=== PATIENT | female | born 1965 | race Caucasian/White ===

== ENCOUNTER 2016-11-25 13:26 | Inpatient (IN) | payer OTHER ==
--- NOTE | ~2016-11-25 | DS ---
Discharge Summary [address] [place]. [address] NAME: AZALIA HOSKINS : 69 STATUS : DIS IN PAT#: [id number] AGE: 51 ADM/REG DATE : 11/25/16 MR#: [id number] REPORT SERV DATE: 11/30/16 DICTATED BY: PENNIE THRASHER DATE: 11/28/16 REPORT STATUS : Draft TRANSCRIBED BY: MODL DATE: 11/28/16 ADMISSION DATE: 11/25/2016 DISCHARGE DATE: 11/28/2016 DISCHARGE DIAGNOSES: 1. Acute gastrointestinal bleeding. 2. Upper gastrointestinal endoscopy. Findings:. a. LA grade D reflux esophagitis. b. Nonbleeding esophageal ulcers. c. Hiatal hernia. d. Gastric ulcer with clean base. e. Scar in gastric antrum. f. Normal examined duodenum. 3. Acute blood loss anemia secondary to above. 4. Abdominal pain secondary to above. 5. Iron deficiency. 6. Chronic hepatitis C, not treated. 7. Chronic pain disorder. 8. Depression. 9. Hypertension. 10.Previous LEEP procedure per precervical cancer changes. 11.Previous back surgery. 12.Chronic dermatitis. 13.History of possible seizure. 14.Diverticulosis without diverticulitis by CT imaging obtained in the emergency room. 15.Fatty liver on ultrasound imaging obtained in the emergency room. OPERATIONS AND PROCEDURES: Upper gastrointestinal endoscopy, Dr. You, 11/26/2016. PRESENT ILLNESS: This is a 51-year-old white female who was triaged in the emergency room on 11/25/2016 at 1216 hours with a chief complaint of vomiting blood. Admission vital signs: Blood pressure 133/75, temp 98.8, pulse 121, and respirations 20. After evaluation in the emergency room, she was found to have a hemoglobin of 7.9. She was referred to the Hospitalist Service for admission. She was seen by Dr. Kirk Espinosa and admitted as described on admission history and physical examination. Additional history included a hospitalization here in 08/2015 with nausea and vomiting at which time upper GI endoscopy revealed a gastric ulcer with clean base, hiatal hernia, and grade D esophagitis. Biopsy at that time revealed mild chronic gastritis changes. Since that time, the patient reported intermittent epigastric abdominal pain. Of late, she had more pain. She developed some nausea and vomiting with bloody and dark emesis. She has been using NSAIDs. ADDITIONAL HISTORY: Per Dr. Espinosa. Discharge Summary [address] [address] NAME: AZALIA HOSKINS : [birth year] STATUS : DIS IN PAT#: [id number] AGE: 51 ADM/REG DATE : 11/25/16 MR#: [id number] REPORT SERV DATE: 11/30/16 DICTATED BY: PENNIE THRASHER DATE: 11/28/16 REPORT STATUS : Draft TRANSCRIBED BY: MESHA DATE: 11/28/16 PHYSICAL EXAMINATION: Per Dr. Espinosa. ADMISSION LABORATORY: Per Dr. Espinosa. HOSPITAL COURSE: She was admitted by Dr. Espinosa with: 1. Epigastric pain. 2. Anemia. 3. Untreated hepatitis C. 4. Chronic back pain. 5. History of major depression with insomnia. 6. History of fatty liver. 7. History of eczema. 8. History of hypertension. 9. Questionable history of seizure. She was admitted to [address] [place] [address]. She was placed on IV Protonix. GI consultation was obtained. Her hospitalist care was assumed by the undersigned. She was taken to the GI lab on 11/26/2016 with the above-mentioned procedure was performed with findings as noted. Dr. You recommended clear liquid diet, anti-reflux regimen, discontinuation of aspirin and NSAIDs indefinitely, discontinuation of alcohol consumption indefinitely, use of omeprazole twice daily for three months, and follow up with him in three weeks. With this therapy, she continued to have some epigastric pain. Carafate suspension was added. Her pain improved. Her hemoglobin was 7.9 on admission. It fell to a low of 6.8. She was given a unit of packed red cells and subsequent hemoglobins were 8.3, 8.6, 8.4, 8.3, and 8.9. She was found to be iron deficient with an iron of 60, TIBC 358, and a ferritin of 14. She was given IV Nulecit x3 doses, all of which she tolerated well. An HIV antibody was done because of her hep C history and was nonreactive. She tolerated liquids well and her diet was advanced, which she also tolerated well. On 11/28/2016, she thought she was almost back to normal. She was ambulatory. She has had a normal bowel movement with normal color. There were no new findings on exam and her lab was as noted. At this point, it was felt she had achieved a level of improvement and stability where she could be safely discharged home and see her primary care physician, Dr. Cunnnigham in [place] on 12/10/[address] You in three weeks. Her activity and diet will be as tolerated. She was asked not to use NSAIDs and alcohol as Discharge Summary [address] [address] NAME: AZALIA HOSKINS : 69 STATUS : DIS IN PAT#: [id number] AGE: 51 ADM/REG DATE : 11/25/16 MR#: [id number] REPORT SERV DATE: 11/30/16 DICTATED BY: PENNIE THRASHER DATE: 11/28/16 REPORT STATUS : Draft TRANSCRIBED BY: MESHA DATE: 11/28/16 noted above. DISCHARGE MEDICATIONS: Pending outpatient followup: Lyrica 75 mg at bedtime, Zoloft 100 mg daily, Carafate 1 tablet to make a slurry one hour a.c. and at bedtime, triamcinolone cream 0.1% topically to chronic eczema, Percocet 10/325 four times daily as needed, Xanax 0.5 mg twice daily as needed, Norvasc 10 mg daily, Ambien 5 mg at bedtime, Rolaids as needed, Pepto Bismol as needed, and OTC Slow FE or equivalent daily. Discharge time is greater than 30 minutes. DICTATED BY: Pennie Thrasher M.D. DD/MESHA Pennie Thrasher M.D. / [id number] CC: Татьяна Zhang M.D.
--- NOTE | ~2016-11-25 | EGD ---
EGD REPORT [facility] [address] [place] [address] NAME: AZALIA RONDON : 69 STATUS : ADM IN PAT#: [id number] AGE: 51 ADM/REG DATE : 11/25/16 MR#: [id number] REPORT SERV DATE: 11/26/16 DICTATED BY: ARAMIS ALEXANDER DATE: 11/26/16 REPORT STATUS : Draft TRANSCRIBED BY: [employer] DATE: 11/26/16 Endoscopy Center Patient Name: Azalia Rondon Date of : 1965 Attending MD: ARAMIS ALEXANDER MD Procedure Date No Time: 11/26/2016 Procedure: Upper GI endoscopy Indications: Anemia, Hematemesis Medicines: Monitored Anesthesia Care Complications: No immediate complications. Procedure: After obtaining informed consent, the endoscope was passed under direct vision. Throughout the procedure, the patient's blood pressure, pulse, and oxygen saturations were monitored continuously. The GIF H190 [id number] was introduced through the mouth, and advanced to the third part of duodenum. The upper GI endoscopy was accomplished without difficulty. The patient tolerated the procedure well. Findings: The nasopharynx was normal. LA Grade D (one or more mucosal breaks involving at least 75% of esophageal circumference) esophagitis with bleeding was found in the lower third of the esophagus. Biopsies were taken with a cold forceps for histology. Verification of patient identification for the specimen was done. Estimated blood loss was minimal. LA Grade D (one or more mucosal breaks involving at least 75% of esophageal circumference) esophagitis with no bleeding was found in the middle third of the esophagus. Few cratered and superficial esophageal ulcers with no bleeding and stigmata of recent bleeding were found in the lower third of the esophagus. The largest lesion was 20 mm in largest dimension. A medium-sized hiatus hernia was present. One non-bleeding cratered gastric ulcer with no stigmata of bleeding was found in the gastric antrum. The lesion was 9 mm in largest dimension. Multiple scars were found in the gastric antrum. The examined duodenum was normal. Impression: - Normal nasopharynx. - LA Grade D reflux esophagitis. Biopsied. - LA Grade D reflux esophagitis. - Non-bleeding esophageal ulcers. - Hiatus hernia. - Gastric ulcer with clean base. - Scar in the gastric antrum. EGD REPORT [address] [address] NAME: AZALIA RONDON : [birth year] STATUS : ADM IN [facility]#: [id number] AGE: 51 ADM/REG DATE : 11/25/16 MR#: [id number] REPORT SERV DATE: 11/26/16 DICTATED BY: ARAMIS ALEXANDER DATE: 11/26/16 REPORT STATUS : Draft TRANSCRIBED BY: [employer] DATE: 11/26/16 - Normal examined duodenum. Recommendation: - Clear liquid diet today. - Follow an antireflux regimen daily. - Discontinue aspirin and NSAIDs indefinitely. - Discontinue alcohol consumption indefinitely. - Use Prilosec (omeprazole) 20 mg PO BID for 3 months. - Return to my office in 3 weeks. Procedure Code(s): --- Professional --- 64642, Esophagogastroduodenoscopy, flexible, transoral; with biopsy, single or multiple Diagnosis Code(s): --- Professional --- K21.0, Gastro-esophageal reflux disease with esophagitis K22.10, Ulcer of esophagus without bleeding K44.9, Diaphragmatic hernia without obstruction or gangrene K25.9, Gastric ulcer, unspecified as acute or chronic, without hemorrhage or perforation K31.89, Other diseases of stomach and duodenum D64.9, Anemia, unspecified K92.0, Hematemesis CPT copyright 2013 [employer]. All rights reserved. The codes documented in this report are preliminary and upon vulcan crewmember review may be revised to meet current compliance requirements. ARAMIS ALEXANDER MD 11/26/2016 5:22 PM This report has been signed electronically. Number of Addenda: 0 Note Initiated On: 11/26/2016 4:57 PM Scope Withdrawal Time 0 hours 0 minutes 0 seconds [address] [place] [address]
--- NOTE | ~2016-11-25 | EGD ---
EGD REPORT [facility] [address] [place] [address] NAME: AZALIA RONDON : 69 STATUS : ADM IN PAT#: [id number] AGE: 51 ADM/REG DATE : 11/25/16 MR#: [id number] REPORT SERV DATE: 11/26/16 DICTATED BY: ARAMIS ALEXANDER DATE: 11/26/16 REPORT STATUS : Draft TRANSCRIBED BY: [employer] DATE: 11/26/16 Endoscopy Center Patient Name: Azalia Rondon Date of : 1965 Attending MD: ARAMIS ALEXANDER MD Procedure Date No Time: 11/26/2016 Procedure: Upper GI endoscopy Indications: Anemia, Hematemesis Medicines: Monitored Anesthesia Care Complications: No immediate complications. Procedure: After obtaining informed consent, the endoscope was passed under direct vision. Throughout the procedure, the patient's blood pressure, pulse, and oxygen saturations were monitored continuously. The GIF H190 [id number] was introduced through the mouth, and advanced to the third part of duodenum. The upper GI endoscopy was accomplished without difficulty. The patient tolerated the procedure well. Findings: The nasopharynx was normal. LA Grade D (one or more mucosal breaks involving at least 75% of esophageal circumference) esophagitis with bleeding was found in the lower third of the esophagus. Biopsies were taken with a cold forceps for histology. Verification of patient identification for the specimen was done. Estimated blood loss was minimal. LA Grade D (one or more mucosal breaks involving at least 75% of esophageal circumference) esophagitis with no bleeding was found in the middle third of the esophagus. Few cratered and superficial esophageal ulcers with no bleeding and stigmata of recent bleeding were found in the lower third of the esophagus. The largest lesion was 20 mm in largest dimension. A medium-sized hiatus hernia was present. One non-bleeding cratered gastric ulcer with no stigmata of bleeding was found in the gastric antrum. The lesion was 9 mm in largest dimension. Multiple scars were found in the gastric antrum. The examined duodenum was normal. Impression: - Normal nasopharynx. - LA Grade D reflux esophagitis. Biopsied. - LA Grade D reflux esophagitis. - Non-bleeding esophageal ulcers. - Hiatus hernia. - Gastric ulcer with clean base. - Scar in the gastric antrum. EGD REPORT [address] [address] NAME: AZALIA RONDON : [birth year] STATUS : ADM IN [facility]#: [id number] AGE: 51 ADM/REG DATE : 11/25/16 MR#: [id number] REPORT SERV DATE: 11/26/16 DICTATED BY: ARAMIS ALEXANDER DATE: 11/26/16 REPORT STATUS : Draft TRANSCRIBED BY: [employer] DATE: 11/26/16 - Normal examined duodenum. Recommendation: - Clear liquid diet today. - Follow an antireflux regimen daily. - Discontinue aspirin and NSAIDs indefinitely. - Discontinue alcohol consumption indefinitely. - Use Prilosec (omeprazole) 20 mg PO BID for 3 months. - Return to my office in 3 weeks. Procedure Code(s): --- Professional --- 09291, Esophagogastroduodenoscopy, flexible, transoral; with biopsy, single or multiple Diagnosis Code(s): --- Professional --- K21.0, Gastro-esophageal reflux disease with esophagitis K22.10, Ulcer of esophagus without bleeding K44.9, Diaphragmatic hernia without obstruction or gangrene K25.9, Gastric ulcer, unspecified as acute or chronic, without hemorrhage or perforation K31.89, Other diseases of stomach and duodenum D64.9, Anemia, unspecified K92.0, Hematemesis CPT copyright 2013 [employer]. All rights reserved. The codes documented in this report are preliminary and upon death surveys coder review may be revised to meet current compliance requirements. ARAMIS ALEXANDER MD 11/26/2016 5:22 PM This report has been signed electronically. Number of Addenda: 0 Note Initiated On: 11/26/2016 4:57 PM Scope Withdrawal Time 0 hours 0 minutes 0 seconds [address] [place] [address]
--- NOTE | ~2016-11-25 | HP ---
History And Physical [address] [facility] [place]. [address] NAME: AZALIA HOSKINS : [birth year] STATUS : ADM IN [facility]#: [id number] AGE: 51 ADM/REG DATE : 11/25/16 MR#: [id number] REPORT SERV DATE: 11/25/16 DICTATED BY: ALLAN HERNANDEZ DATE: 11/25/16 REPORT STATUS : Draft TRANSCRIBED BY: MODL DATE: 11/25/16 DATE OF ADMISSION: 11/25/2016 IDENTIFYING DATA: A 51-year-old white female whose PCP is Dr. Rod Cunningham; GI, Dr. Rayshawn You. CHIEF COMPLAINT: Vomiting blood. HISTORY OF PRESENT ILLNESS: This history of present illness is obtained by talking to the patient and her father at bedside as well as talking to Dr. Owen, the ER physician, and I reviewed the current ER paper chart and [employer]. The patient has been hospitalized here in the past August 2015 for nausea and vomiting. At that time, had an endoscopy by Dr. Rayshawn You on 09/02/2015 revealing gastric ulcer with a clean base, hiatal hernia, grade D esophagitis. Biopsy was done at that time and revealed mild chronic gastritis. No evidence for neoplastic changes. No viral cytopathic changes. There is no mention about H. pylori testing. She states ever since then she has had intermittent abdominal pain located in the epigastric area. It is somewhat diffuse there, it was a raw sensation that worsens with meals. It used to flare-up every four to six months, now she states it is more often, and for the last week, it has been hurting almost constant. She has associated with some nausea. She has been throwing up some material that was dark black and some that was red. She has occasional black stools, but she has been using Pepto-Bismol. She has tried Rolaids and Pepto and states they gave her temporary relief. She came to the emergency room with these symptoms and was found to have a hemoglobin of 7.9 compared to a hemoglobin of 13.1 on 09/29/2015, so we are asked to evaluate her and admit her. REVIEW OF SYSTEMS: She subjectively had fever, sweats, cough, urinary frequency, but no dysuria. She has some trace ankle edema. She states she has gained 20 pounds in the last year. She denies sore throat, nasal congestion, chest pain, shortness of breath, diarrhea, dysuria, rash. She has slight urinary hesitancy. ALLERGIES: SHE CLAIMS MORPHINE CAUSES SEIZURES. PAST MEDICAL HISTORY: She denies any history of diabetes, asthma, COPD, heart disease, stroke, biliary tract disease, thyroid disease, chronic kidney disease, kidney stones, or sleep apnea. She has had gastric ulcer and gastritis as mentioned above, along with the hiatal hernia. She has chronic back pain for which she takes pain medicines. She has a history of depression and insomnia. She also states she has had seizures in the past when she was having electrolyte imbalances, and she states last week, she was sitting in a lawn chair, woke up, and her friend said she had a seizure where she stiffened. She did not go to the hospital for any evaluation at that time. She has known hepatitis C with no treatment in History And Physical [address] [address] NAME: AZALIA HOSKINS : [birth year] STATUS : ADM IN [facility]#: [id number] AGE: 51 ADM/REG DATE : 11/25/16 MR#: [id number] REPORT SERV DATE: 11/25/16 DICTATED BY: ALLAN HERNANDEZ DATE: 11/25/16 REPORT STATUS : Draft TRANSCRIBED BY: MESHA DATE: 11/25/16 the past. She has hypertension, eczema, and fatty liver. HOME MEDICATIONS: Include Xanax 0.5 mg b.i.d. p.r.n. anxiety, Norvasc 10 mg daily, Pepto- Bismol p.r.n., Rolaids p.r.n.; Advil, she takes about three of them per day, I told her that she should not do this anymore. I discussed how she should not take any ibuprofen in any form or Aleve and explained that it could cause ulcers, bleeding, and kidney problems; Percocet 10/325 q.i.d. p.r.n. pain, Lyrica 75 mg at bedtime, Zoloft 100 mg daily, triamcinolone cream 0.1% applied to the leg rash, Ambien 5 mg at bedtime. PAST SURGICAL HISTORY: She has had a LEEP procedure for pre-cervical cancer changes. She had back surgery. SOCIAL HISTORY: She smokes a pack per day. She states she drinks four to five beers about twice a week. She states she is "fighting to get disability at this time." FAMILY HISTORY: Mother reportedly with congestive heart failure. Father with tongue cancer. DIAGNOSTIC DATA: Available at this time includes abdominal ultrasound which shows fatty liver and no abnormalities, otherwise. Sodium 136, potassium 3.8, chloride 100, CO2 is 28, BUN 10, creatinine 0.53, glucose 122, calcium 8.1. The rest of her CMP was normal. Her lipase was 55. Lactic acid was normal at 1.5. White count is 17.8, hemoglobin 7.9, and by comparison, it was 13.1, the last time we had it measured on 09/29/2015. MCHC is microcytic at 31.7. RDW is elevated at 19. Platelets 367,000. PT, PTT, INR are not available yet. Urinalysis today, clean catch, normal. PHYSICAL EXAMINATION: VITAL SIGNS: Temp is 98, pulse 120 originally, now it is about 90, blood pressure 130/70, O2 saturation 99%, respirations 20. GENERAL: Well-developed female, who appears older than her stated age. She appears in no acute distress. HEENT: Head is atraumatic. Pupils are equal, round, and reactive to light. Extraocular motions are intact. No scleral icterus noted. Ear canals and TMs unremarkable with normal hearing bilaterally. No inflammatory changes noted in the external ears. Nose, noninflamed externally. Septum midline. Nares patent. Mouth, moist. Good gag. No redness of the throat. She has very poor dental repair with a number of large caries. NECK: Supple. No lymph node or thyroid enlargement. The carotids have good pulses. No bruits. LUNGS: Slightly prolonged expiratory phase. Fair air flow. No wheezes. No rhonchi. Normal respiratory effort. HEART: Regular rate and rhythm without murmur, gallop, click, or rub. ABDOMEN: Bowel sounds positive. Soft, nondistended, nontender except moderately in the epigastric area. There is negative Carcamo sign. No mass. No bruits. No organomegaly noted. EXTREMITIES: Warm. She has no clubbing, no cyanosis. She has good pulses in her hands. She has reduced pulses in her feet. She has some anterior juarez areas that are about 20 cm long and about 7 cm wide, oval in shape, somewhat raised, a little bit red and scaly. She has a number of areas on the forearm bilaterally that are scarred scratch matthew from the History And Physical [address] [place]. [address] NAME: AZALIA HOSKINS : [birth year] STATUS : ADM IN PAT#: [id number] AGE: 51 ADM/REG DATE : 11/25/16 MR#: [id number] REPORT SERV DATE: 11/25/16 DICTATED BY: ALLAN HERNANDEZ DATE: 11/25/16 REPORT STATUS : Draft TRANSCRIBED BY: MODBrennon DATE: 11/25/16 past, not on the anterior aspect of the arms. NEUROLOGIC: She is alert, oriented, and cooperative with grossly normal mentation and speech as well as motor and cranial nerves II through XII. No Babinski. No clonus noted. ASSESSMENT: 1. Epigastric pain. Highly suggestive of recurrent peptic ulcer disease in a smoker using nonsteroid anti-inflammatory agents on a regular basis. 2. Anemia that is probably due to a gradual loss with some acute component now, most likely from peptic ulcer, less likely esophageal varices. 3. Untreated hepatitis C virus in a person who is using moderate amount of alcohol. 4. Chronic back pain. 5. History of major depression with insomnia. 6. History of fatty liver. 7. History of eczema. 8. History of hypertension. 9. Questionable history of seizure. PLAN: 1. Admit to the hospital on telemetry unit. 2. Proton pump, Protonix IV b.i.d. 3. GI consultation to Dr. You, to consider EGD and future followup for hepatitis C treatment options and screening for H pylori. 4. Follow up hemoglobin. 5. We will check her HIV. We will check a chest x-ray, since she noticed she had some subjective fever and also follow up the CT abdomen and pelvis that the ER has ordered. Follow up blood cultures. She has blood typed and crossed in case we need to transfuse it. FELIPE/MESHA Татьяна Boyce#: [id number] / [id number] CC: Татьяна Zhang CHARLES E Nikhil Shah, M.D.
--- NOTE | ~2016-11-25 | CN ---
Consultation Report [facility] [address] [place]. [address] NAME: AZALIA RONDON : 69 STATUS : ADM IN PAT#: [id number] AGE: 51 ADM/REG DATE : 11/25/16 MR#: [id number] REPORT SERV DATE: 11/26/16 DICTATED BY: RAYSHAWN ALEXANDER DATE: 11/26/16 REPORT STATUS : Draft TRANSCRIBED BY: MODL DATE: 11/26/16 CONSULTATION DATE OF CONSULTATION: 11/26/2016 REASON FOR CONSULTATION: The patient admitted with history of upper GI bleed and anemia and continues alcohol abuse and NSAIDs abuse. HISTORY OF PRESENT COMPLAINT: Ms. Rondon known to me came back again with a history of vomiting blood and dark color vomitus. She was in the hospital here in 08/2015, had done upper endoscopy by me in and noted to have gastric ulcer, hiatal hernia, and grade D esophagitis. And also some mild chronic gastritis. The patient has a long history of alcohol abuse plus NSAID abuse. She continues to take ibuprofen at this time also. She has some abdominal pain and epigastric pain on a frequent basis. The pain is also associated with nausea for last two or three days. She has been having nausea and vomiting. The patient has occasional black stools. She has takes Pepto-Bismol also. She takes Rolaids and Pepto-Bismol as needed. At this time, the hemoglobin 7.9, compared to 13 on 09/29/2015. PAST MEDICAL HISTORY: Significant for diabetes, asthma, COPD, heart disease, stroke, biliary tract disease, thyroid disease, chronic kidney disease, kidney stones, and sleep apnea. ALLERGIES: THE PATIENT IS ALLERGIC TO MORPHINE. MEDICATIONS: At home include Xanax 0.5 mg as needed, Norvasc 10 mg daily, Pepto-Bismol as needed, Rolaids as needed, Advil, also she takes it at least three of those per day. Takes Percocet as needed. Lyrica 75 mg at bedtime. Zoloft 100 mg daily. PAST SURGICAL HISTORY: Significant for LEEP procedure for precervical cancer changes. SOCIAL HISTORY: Smokes a pack of cigarettes a day. Drinks four to five beers twice a week, it can be more. No good historian about alcohol. FAMILY HISTORY: Significant for congestive heart failure and father had tongue cancer. REVIEW OF SYSTEMS: Noted from the chart. Denies any headache. No chest pain at this time. No acute change in vision or hearing. No acute neurological or psychiatric symptoms. Nausea, abdominal pain is better. All other systems reviewed as per history. PHYSICAL EXAMINATION: VITAL SIGNS: Blood pressure 118/61, temperature afebrile, pulse 83, and respirations 20 per minute. GENERAL: This is a female who looks older than her age. HEENT: No icterus or pale conjunctivae. Consultation Report [address] [place]. [address] NAME: AZALIA RONDON : 69 STATUS : ADM IN [facility]#: [id number] AGE: 51 ADM/REG DATE : 11/25/16 MR#: [id number] REPORT SERV DATE: 11/26/16 DICTATED BY: RAYSHAWN ALEXANDER DATE: 11/26/16 REPORT STATUS : Draft TRANSCRIBED BY: MESHA DATE: 11/26/16 NECK: Supple. No JVD. CHEST: Bilateral fair air flow. Normal excursions. HEART: S1, S2. Regular rate and rhythm. No murmur. ABDOMEN: Soft. Bowel sounds present. No hepatosplenomegaly. Mild left lower quadrant, lower abdomen epigastric tenderness noted. EXTREMITIES: No clubbing, cyanosis, or edema. Some chronic vascular changes noted on the anterior juarez of both legs. NEUROLOGIC: Alert and oriented. Moving all extremities. ASSESSMENT: The patient readmitted with hematemesis, anemia, epigastric pain, continue alcohol abuse, continue NSAIDs abuse. PLAN: At this time is to evaluate this history with upper endoscopy and treat the bleeding source. At the same time, continue Protonix IV and once again advised to stop alcohol and also NSAIDs and if she can also tobacco at the same time, not a good compliant patient, we will try to explain her. CARLOS/AUGUSTUSL Rayshawn Alexander M.D. / [id number] CC: Татьяна Zhang CHARLES E
[2016-11-25 13:13] LABS: BASOPHILS 0.1 %; BASOPHILS ABSOLUTE 0.02 10/3/uL (0.0-0.16); EOSINOPHILS 0.3 %; EOSINOPHILS ABSOLUTE 0.05 10/3/uL (0.0-0.53); IMMATURE GRANULOCYTES 0.4 %; IMMATURE GRANULOCYTES ABSOLUTE 0.07 10/3/uL (0.0-0.11); LYMPHOCYTES 6.9 %; LYMPHOCYTES ABSOLUTE 1.22 10/3/uL (0.67-4.30); MEAN PLATELET VOLUME 8.2 fL (9.2-13.0); MONOCYTES 8.9 %; MONOCYTES ABSOLUTE 1.58 10/3/uL (0.21-1.20); NEUTROPHILS 83.4 %; NEUTROPHILS ABSOLUTE 14.87 10/3/uL (2.02-8.40)
[2016-11-25 13:16] LABS: ER CBC TAT 0 Hrs 07 Mins; HEMATOCRIT 24.9 % (36.0-48.0); HEMOGLOBIN 7.9 g/dL (12.0-16.0); MEAN CORPUS HGB CONC 31.7 g/dL (32.0-36.0); MEAN CORPUSCULAR HEMOGLOB 28.4 pg (26.0-34.0); MEAN CORPUSCULAR VOLUME 89.6 fL (80-100); RED CELL COUNT 2.78 10/6/uL (4.0-5.6); WHITE BLOOD CELLS 17.8 10/3/uL (4.5-10.5)
[2016-11-25 13:17] LABS: MANUAL DIFF NO %; PLATELET COUNT 367 10/3/uL (150-400)
[2016-11-25 13:20] LABS: ASCORBIC ACID (UR NOT ORDER) NEG (NEG); BILIRUBIN, URINE NEGATIVE (NEG); ER URINALYSIS TAT 0 Hrs 11 Mins; KETONE, URINE NEGATIVE (NEG); LEUKOCYTE ESTERASE(NOT OR NEG (NEG); NITRITE (URINE) NEG (NEG); WBC (NOT ORDERED) (RFLEX) < 1 (0-5)
[~2016-11-25 13:26] MED LIST: ADVIL PO; AMB5 PO; CLOBETASOL0.051 TOP; CREAM TOP; FOLIC PO; LYRICA75 PO; MAALOX PO; MULTIPLE VIT PO; NORCO1 TAB PO; NORV10 PO; OXYCON20 PO; PEPTO-BISM524 MG/30 PO; PERCOCET1 TA4 PO; PR25 PO; PRILOSEC40 MG PO; PRIN20 PO; SOMATAB PO; THERA M PLUS PO; ZOL50 PO
[2016-11-25 13:30] LABS: A/G RATIO 0.8 (0.7-1.9); ALBUMIN 2.6 G/DL (3.5-5.0); ALKALINE PHOSPHATASE 82 U/L (45-117); BUN (BLOOD UREA NITROGEN) 10 MG/DL (6-23); CALCIUM, SERUM 8.1 MG/DL (8.5-10.4); CHLORIDE, SERUM 100 MMOL/L (96-112); CO2 (CARBON DIOXIDE) 28 MMOL/L (24-34); CREATININE 0.53 MG/DL (0.55-1.02); GFR AFRICAN AMERICAN 129 ML/MIN (>=60); GFR NON AFRICAN AMERICAN 111 ML/MIN (>=60); GLOBULIN 3.4 G/DL (2.5-4.1); GLUCOSE, SERUM 122 MG/DL (60-99); POTASSIUM, SERUM 3.8 MMOL/L (3.5-5.3); SGOT(AST) 17 U/L (5-40); SGPT(ALT) 17 U/L (5-65); SODIUM, SERUM 136 MMOL/L (135-148); TOTAL BILIRUBIN 0.7 MG/DL (0-1.2)
[2016-11-25 13:31] LABS: LACTATE 1.5 MMOL/L (0.3-2.4)
[2016-11-25] MEDS ORDERED: PERCOCET 10/3251 TAB PO (15:31)
[2016-11-25] MEDS ORDERED: X5 PO (15:32)
[2016-11-25] MEDS ORDERED: ZOL100 PO (15:32)
[2016-11-25] MEDS ORDERED: LYRICA75 PO (15:33)
[2016-11-25] MEDS ORDERED: ADVIL PO (15:33)
[2016-11-25] MEDS ORDERED: NORV10 PO (15:33)
[2016-11-25] MEDS ORDERED: TRIAMCINOLONE C80 GM TOP (15:34)
[2016-11-25] MEDS ORDERED: AMB5 PO (15:34)
[2016-11-25] MEDS ORDERED: ROLAIDS PO (15:35)
[2016-11-25] MEDS ORDERED: PEPTO BISMOL LIQ1 ML PO (15:35)
[2016-11-25 20:04] LABS: HEMATOCRIT 23.3 % (36.0-48.0); HEMOGLOBIN 7.4 g/dL (12.0-16.0)
[2016-11-25 20:14] LABS: INTERNATIONAL NORMAL RATI 1.1 UNITS (-); PARTIAL THROMBO TIME 29.8 SEC (22.5-37.2); PROTIME (NOT ORD) 13.7 SEC (12.0-14.5)
[2016-11-25 22:24] LABS: HEMATOCRIT 22.6 % (36.0-48.0); HEMOGLOBIN 7.1 g/dL (12.0-16.0)
[2016-11-26 05:26] LABS: BASOPHILS 0.2 %; BASOPHILS ABSOLUTE 0.02 10/3/uL (0.0-0.16); EOSINOPHILS 1.4 %; EOSINOPHILS ABSOLUTE 0.13 10/3/uL (0.0-0.53); HEMATOCRIT 23.2 % (36.0-48.0); HEMOGLOBIN 7.3 g/dL (12.0-16.0); IMMATURE GRANULOCYTES 0.4 %; IMMATURE GRANULOCYTES ABSOLUTE 0.04 10/3/uL (0.0-0.11); LYMPHOCYTES 23.9 %; LYMPHOCYTES ABSOLUTE 2.17 10/3/uL (0.67-4.30); MEAN CORPUS HGB CONC 31.5 g/dL (32.0-36.0); MEAN CORPUSCULAR HEMOGLOB 28.2 pg (26.0-34.0); MEAN CORPUSCULAR VOLUME 89.6 fL (80-100); MEAN PLATELET VOLUME 8.6 fL (9.2-13.0); MONOCYTES 7.5 %; MONOCYTES ABSOLUTE 0.68 10/3/uL (0.21-1.20); NEUTROPHILS 66.6 %; NEUTROPHILS ABSOLUTE 6.05 10/3/uL (2.02-8.40); PLATELET COUNT 375 10/3/uL (150-400); RBC DISTRIBUTION WIDTH 19.4 % (12.0-16.0); RED CELL COUNT 2.59 10/6/uL (4.0-5.6)
[2016-11-26 05:28] LABS: MANUAL DIFF NO %; WHITE BLOOD CELLS 9.1 10/3/uL (4.5-10.5)
[2016-11-26 10:39] LABS: HEMATOCRIT 22.9 % (36.0-48.0); HEMOGLOBIN 7.2 g/dL (12.0-16.0)
[2016-11-26 10:49] LABS: BUN (BLOOD UREA NITROGEN) 7 MG/DL (6-23); CALCIUM, SERUM 7.9 MG/DL (8.5-10.4); CHLORIDE, SERUM 106 MMOL/L (96-112); CO2 (CARBON DIOXIDE) 29 MMOL/L (24-34); CREATININE 0.56 MG/DL (0.55-1.02); GFR AFRICAN AMERICAN 127 ML/MIN (>=60); GFR NON AFRICAN AMERICAN 109 ML/MIN (>=60); GLUCOSE, SERUM 109 MG/DL (60-99); POTASSIUM, SERUM 4.2 MMOL/L (3.5-5.3); SODIUM, SERUM 141 MMOL/L (135-148)
[2016-11-26 14:59] LABS: HEMOGLOBIN 8.1 g/dL (12.0-16.0)
[2016-11-26 15:03] LABS: HEMATOCRIT 25.5 % (36.0-48.0)
[2016-11-26 19:41] LABS: FERRITIN 14 NG/ML (8-252); IRON, SERUM 60 MCG/DL (35-150)
[2016-11-26 19:42] LABS: IRON BINDING CAPACITY 358 MCG/DL (225-410)
[2016-11-27 05:48] LABS: BASOPHILS 0.2 %; BASOPHILS ABSOLUTE 0.02 10/3/uL (0.0-0.16); EOSINOPHILS 2.1 %; EOSINOPHILS ABSOLUTE 0.19 10/3/uL (0.0-0.53); IMMATURE GRANULOCYTES 0.4 %; IMMATURE GRANULOCYTES ABSOLUTE 0.04 10/3/uL (0.0-0.11); LYMPHOCYTES 21.6 %; LYMPHOCYTES ABSOLUTE 1.97 10/3/uL (0.67-4.30); MEAN CORPUS HGB CONC 31.6 g/dL (32.0-36.0); MEAN CORPUSCULAR HEMOGLOB 28.1 pg (26.0-34.0); MEAN CORPUSCULAR VOLUME 88.8 fL (80-100); MEAN PLATELET VOLUME 8.7 fL (9.2-13.0); MONOCYTES 8.3 %; MONOCYTES ABSOLUTE 0.76 10/3/uL (0.21-1.20); NEUTROPHILS 67.4 %; NEUTROPHILS ABSOLUTE 6.14 10/3/uL (2.02-8.40); PLATELET COUNT 387 10/3/uL (150-400); RBC DISTRIBUTION WIDTH 19.4 % (12.0-16.0); RED CELL COUNT 2.42 10/6/uL (4.0-5.6); WHITE BLOOD CELLS 9.1 10/3/uL (4.5-10.5)
[2016-11-27 05:51] LABS: HEMATOCRIT 21.5 % (36.0-48.0); HEMOGLOBIN 6.8 g/dL (12.0-16.0)
[2016-11-27 05:53] LABS: MANUAL DIFF NO %
[2016-11-27 05:54] LABS: BUN (BLOOD UREA NITROGEN) 8 MG/DL (6-23); CALCIUM, SERUM 7.8 MG/DL (8.5-10.4); CHLORIDE, SERUM 107 MMOL/L (96-112); CO2 (CARBON DIOXIDE) 26 MMOL/L (24-34); CREATININE 0.64 MG/DL (0.55-1.02); GFR AFRICAN AMERICAN 121 ML/MIN (>=60); GFR NON AFRICAN AMERICAN 105 ML/MIN (>=60); GLUCOSE, SERUM 116 MG/DL (60-99); SODIUM, SERUM 138 MMOL/L (135-148)
[2016-11-27 12:11] LABS: HEMATOCRIT 26.2 % (36.0-48.0); HEMOGLOBIN 8.3 g/dL (12.0-16.0)
[2016-11-27 17:04] LABS: HEMATOCRIT 26.6 % (36.0-48.0); HEMOGLOBIN 8.6 g/dL (12.0-16.0)
[2016-11-27 22:44] LABS: HEMATOCRIT 26.3 % (36.0-48.0); HEMOGLOBIN 8.4 g/dL (12.0-16.0)
[2016-11-28 04:55] LABS: BASOPHILS 0.2 %; BASOPHILS ABSOLUTE 0.02 10/3/uL (0.0-0.16); EOSINOPHILS 2.7 %; EOSINOPHILS ABSOLUTE 0.24 10/3/uL (0.0-0.53); HEMATOCRIT 25.6 % (36.0-48.0); HEMOGLOBIN 8.3 g/dL (12.0-16.0); IMMATURE GRANULOCYTES 0.6 %; IMMATURE GRANULOCYTES ABSOLUTE 0.05 10/3/uL (0.0-0.11); LYMPHOCYTES 23.1 %; LYMPHOCYTES ABSOLUTE 2.02 10/3/uL (0.67-4.30); MANUAL DIFF NO %; MEAN CORPUS HGB CONC 32.4 g/dL (32.0-36.0); MEAN CORPUSCULAR HEMOGLOB 27.9 pg (26.0-34.0); MEAN CORPUSCULAR VOLUME 86.2 fL (80-100); MEAN PLATELET VOLUME 8.4 fL (9.2-13.0); MONOCYTES 8.4 %; MONOCYTES ABSOLUTE 0.73 10/3/uL (0.21-1.20); NEUTROPHILS ABSOLUTE 5.68 10/3/uL (2.02-8.40); PLATELET COUNT 325 10/3/uL (150-400); RBC DISTRIBUTION WIDTH 19.2 % (12.0-16.0); RED CELL COUNT 2.97 10/6/uL (4.0-5.6); WHITE BLOOD CELLS 8.7 10/3/uL (4.5-10.5)
[2016-11-28 11:22] LABS: HEMOGLOBIN 8.9 g/dL (12.0-16.0)
[2016-11-28 11:24] LABS: HEMATOCRIT 28.3 % (36.0-48.0)
[2016-11-28] MEDS ORDERED: SUCR PO (14:06)
[2016-11-28] MEDS ORDERED: SLOW IRON PO (14:12)
== END 2016-11-28 16:15 | disposition home or self-care (01) | DRG 378 ==
LOC: ER 13:26 → 6NO 15:37
PROVIDERS: Hospitalist; Internal Medicine; Internal Medicine Gastroenterology
PROC: 0DB68ZX Excision of Stomach, Via Natural or Artificial Opening Endoscopic, Diagnostic (ICD-10-PCS; 2016-11-26)
PROC: 0DB38ZX Excision of Lower Esophagus, Via Natural or Artificial Opening Endoscopic, Diagnostic (ICD-10-PCS; principal; 2016-11-26 17:02)
PROC: 30233N1 Transfusion of Nonautologous Red Blood Cells into Peripheral Vein, Percutaneous Approach (ICD-10-PCS; 2016-11-27)
DX: K92.0 Hematemesis (principal); K22.10 Ulcer of esophagus without bleeding; K76.0 Fatty (change of) liver, not elsewhere classified; F10.188 Alcohol abuse with other alcohol-induced disorder; D62 Acute posthemorrhagic anemia; K21.0 Gastro-esophageal reflux disease with esophagitis; K44.9 Diaphragmatic hernia without obstruction or gangrene; K29.50 Unspecified chronic gastritis without bleeding; F17.210 Nicotine dependence, cigarettes, uncomplicated; F32.9 Major depressive disorder, single episode, unspecified; T39.395A Adverse effect of other nonsteroidal anti-inflammatory drugs [NSAID], initial encounter; J44.9 Chronic obstructive pulmonary disease, unspecified; N18.9 Chronic kidney disease, unspecified; L30.9 Dermatitis, unspecified; K57.30 Diverticulosis of large intestine without perforation or abscess without bleeding; B18.2 Chronic viral hepatitis C; K25.9 Gastric ulcer, unspecified as acute or chronic, without hemorrhage or perforation; Z88.5 Allergy status to narcotic agent; Z87.440 Personal history of urinary (tract) infections; Z82.3 Family history of stroke
CPT/HCPCS: 36415; 71010; 74176; 76705; 80048; 80053; 81001; 82140; 82728; 83540; 83550; 83605; 83690; 84484; 85014; 85018; 85025; 85610; 85730; 86850; 86900; 86901; 86920; 87040; 87389; 88305; 88342; 93005; 96374; 96375; 99285; A9270-GY; C9113; J2405; J2916; P9016

== ENCOUNTER 2016-12-14 05:33 | Inpatient (IN) | payer OTHER ==
--- NOTE | ~2016-12-14 | DS ---
Discharge Summary [place] [facility] [place]. [address] NAME: AZALIA HOSKINS : 69 STATUS : DIS IN PAT#: [id number] AGE: 51 ADM/REG DATE : 12/14/16 MR#: [id number] REPORT SERV DATE: 12/21/16 DICTATED BY: REJI KNIGHT DATE: 12/18/16 REPORT STATUS : Draft TRANSCRIBED BY: MESHA DATE: 12/18/16 ADMISSION DATE: 12/14/2016 DISCHARGE DATE: DIAGNOSES: 1. Gastrointestinal bleed with history of severe esophagitis and a large Lamar-Pak tear, status post hemostasis with clips. 2. Gastritis. 3. Acute blood loss anemia. 4. Hypertension. 5. Hypokalemia and hypomagnesemia. FOLLOWUP: The patient should follow up with the primary care physician in one week to repeat H and H and to follow up with Dr. You, GI physician, in two weeks. DIET: Full liquid diet for two days and then GI soft diet. No nonsteroidals. No alcohol. DISCHARGE MEDICATIONS: 1. Amlodipine 10 mg p.o. at bedtime. 2. Bactroban nasal ointment topically b.i.d., to stop in 1 day. 3. Protonix 40 mg p.o. q.a.m. 4. Lyrica 50 mg p.o. daily. 5. Zoloft 100 mg p.o. at bedtime. 6. Carafate 1 g p.o. a.c. and at bedtime. 7. Xanax 0.5 mg p.o. q.6 hours p.r.n. per prescriber. 8. Percocet 10 x 325 one tab p.o. three times a day p.r.n. per prescriber. CONSULTANTS: 1. GI Dr. You. 2. [facility]. PROCEDURE: EGD on 12/14/2016, by Dr. Rayshawn You. Finding of large nonbleeding Lamar- Pak tear with stigmata of recent bleed found. Status post injection of epinephrine and 3 hemostatic clips successfully placed. Hiatal hernia medium size. Diffuse mild inflammation, congestion, and erosions in the entire stomach. HOSPITAL COURSE: Please see H and P dictated by Dr. Mikey Gold. This is a 51 years old female with a past medical history of hepatitis and GI bleed in the past and nonsteroidal usage, presented with hematemesis and epigastric discomfort. According to the family members, the patient also drinks alcohol although the patient denied. Also, the patient was taking alcohol and Goody powders. She was recently discharged from the hospital by Dr. Thrasher, for upper GI bleed in early 11/2016. The patient once again was educated and reminded about refraining from nonsteroidals. She was admitted Discharge [address] [address] NAME: AZALIA HOSKINS : 69 STATUS : DIS IN PAT#: [id number] AGE: 51 ADM/REG DATE : 12/14/16 MR#: [id number] REPORT SERV DATE: 12/21/16 DICTATED BY: REJI KNIGHT DATE: 12/18/16 REPORT STATUS : Draft TRANSCRIBED BY: MESHA DATE: 12/18/16 to initially the hospitalist service but then required admission to ICU and cared for by consumer education specialist from 12/15/2016 and 12/16/2016 and then released to regular bed. I attended care for the patient initiating on 12/17/2016, for which the patient was clinically and hemodynamically stable. Electrolyte drip required replacing. She was once again re- educated on refraining from the nonsteroidals. Also the patient educated on alcohol cessation by staff. The patient had no recurrence of bleeding. Also her diet was advanced from a clear liquid to a full liquid by GI and also approved for discharge to home once the patient tolerated a full liquid diet to discharged to home. The patient tolerated a full liquid diet and will remain on full liquid diet, recommended for 24 hours by GI, however will extend it to 48 hours at discharge for the patient and also, the patient educated on appropriate diet at discharge and to return for any recurrence of symptoms. The patient is discharged to home in stable condition to follow up as an outpatient. DICTATED BY: Татьяна RodriguezH/MESHA Reji Knight M.D. / [id number] CC: Татьяна Rodriguez M.D. Charles Hood, MD
--- NOTE | ~2016-12-14 | HP ---
History And Physical [place] [id number] [facility] [place]. [address] NAME: AZALIA RONDON : 69 STATUS : REG ER PAT#: [id number] AGE: 51 ADM/REG DATE : 12/14/16 MR#: [id number] REPORT SERV DATE: 12/14/16 DICTATED BY: MIKEY JARAMILLO DATE: 12/14/16 REPORT STATUS : Draft TRANSCRIBED BY: MODBrennon DATE: 12/14/16 DATE OF ADMISSION: 12/14/2016 CHIEF COMPLAINT: Vomiting dark blood. HISTORY OF PRESENT ILLNESS: This is a 51-year-old female with a history of recent prior gastrointestinal bleed, history of nonsteroidal anti-inflammatory drugs and alcohol abuse, who presents to the emergency room at [facility] with the above- mentioned complaint. History is obtained from the patient and reviewing data available on the [employer] system. According to Mrs. Rondon and her father who is at bedside, she was sleeping in bed today, woke up early in the morning suddenly realizing she had to throw up. As soon as she sat up she vomited about a half a gallon to a gallon of dark red blood. She had no warning at all. No history of pain, discomfort, or anything. Since then she has not vomited, but she decided to come to the emergency room right away. She says she did have some epigastric pain yesterday and I think she has been taking Goody powders and NSAID as well. Her father who is at bedside says she does, and he also states she drinks every day although the patient is denying these things. She lives with her father and her grandmother in the same house. In the emergency room, she had anemia, hypokalemia, and Hospitalist Service is asked to admit her for further evaluation and treatment. The ER provider have already spoken to Dr. Rayshawn You her fleet operations manager who advised admission. At the time of my evaluation, she denied any chest pain or palpitations. She had no orthopnea. She had no cough, hemoptysis, night sweats, or weight loss. She denied any fevers, chills, nausea, vomiting, or diarrhea. No history of recent travel or exposure other than those mentioned above. PAST MEDICAL HISTORY: Significant for history of upper GI bleeding last month, history of hepatitis, depression, hypertension, and history of seizure disorder. She does have a history of alcohol abuse and NSAID abuse including Goody powders. SOCIAL HISTORY: She has about 30-pack year history of smoking, continues to do so. Denies any recreational drugs. She does drink on a daily basis according to her father. She is trying to get disability at this time. FAMILY HISTORY: Noncontributory. MEDICATIONS: At home were reviewed by me in the chart today and reordered by me. REVIEW OF SYSTEMS: As in history of present illness. All other systems were reviewed in detail and are quite unremarkable. History And Physical [address] [place]. [address] NAME: AZALIA RONDON : 69 STATUS : REG ER PAT#: [id number] AGE: 51 ADM/REG DATE : 12/14/16 MR#: [id number] REPORT SERV DATE: 12/14/16 DICTATED BY: MIKEY JARAMILLO DATE: 12/14/16 REPORT STATUS : Draft TRANSCRIBED BY: MESHA DATE: 12/14/16 PHYSICAL EXAMINATION: GENERAL: This is a pleasant 51-year-old, not in any acute distress. HEAD: Her head is atraumatic, normocephalic. She is alert, awake, oriented to time, place, and person. Her pupils are equal, reacting to light and accommodating. External ocular muscles are intact. Membranes are moist and pink. Sclerae are nonicteric. NECK: Supple with no jugular venous distention, lymphadenopathy, or thyromegaly. LUNGS: Clear to auscultation with no wheezes, rubs, or crackles. HEART: Heart sounds were regular with no murmurs, rubs, or gallops. ABDOMEN: Soft, nontender. Bowel sounds are present. EXTREMITIES: Showed no cyanosis, clubbing, or edema. NEUROLOGIC: Grossly intact. No focal sensory or motor deficits. Higher functions appeared intact. VITAL SIGNS: Her vital signs today showed a temperature of 96.8, pulse 124, respirations 20 a minute, blood pressure was 112/59, oxygen saturations were 98% breathing 2 L of oxygen via nasal cannula. LABORATORY DATA: Reviewed on the [employer] system showed a sodium of 139, potassium 3.1, chloride 102, and CO2 of 28. BUN was 30 with a creatinine of 0.71, blood glucose was 166. Her alkaline phosphatase was 68, ALT was 17, AST 18. CBC showed a white blood cell count of 12,300, hemoglobin was 8.6, hematocrit 27.0 this is about her baseline. Urinalysis was not done today. A 12-lead EKG done in the emergency room was reviewed and interpreted by me. There is sinus tachycardia at a rate of [address]-T changes. There is QTc prolongation. IMPRESSION: 1. Acute upper gastrointestinal bleeding. 2. History of gastric ulcer. 3. Anemia chronic secondary to blood loss. 4. Hypokalemia. 5. Alcohol abuse. 6. NSAID abuse. 7. History of hepatitis. 8. Depression. 9. Hypertension. 10.History of seizures. PLAN: We will admit Mrs. Rondon to the Hospitalist Service with telemetry for a 24-hour observation period. We will keep her n.p.o. for now, start her on a proton pump inhibitor infusion and go ahead and consult Gastroenterology Service to see her. We will follow serial hemoglobin, hematocrit levels and transfuse if needed. We will replace her potassium, follow chemistry, CBC in the morning and replace as needed. She will be continued on all her home medications including her pain medicines. We will keep her on SCDs for now for DVT prophylaxis as well. I have discussed the above plans with the patient. Her questions were answered and she is agreeable to the above recommendations. History And Physical [address] [address] NAME: AZALIA RONDON : 69 STATUS : REG ER PAT#: [id number] AGE: 51 ADM/REG DATE : 12/14/16 MR#: [id number] REPORT SERV DATE: 12/14/16 DICTATED BY: MIKEY JARAMILLO DATE: 12/14/16 REPORT STATUS : Draft TRANSCRIBED BY: MESHA DATE: 12/14/16 /MESHA Mikey Jaramillo M.D. / [id number]
--- NOTE | ~2016-12-14 | EGD ---
EGD REPORT [facility] [address] [place] [address] NAME: FREDA RONDON : 69 STATUS : ADM IN PAT#: [id number] AGE: 51 ADM/REG DATE : 12/14/16 MR#: [id number] REPORT SERV DATE: 12/14/16 DICTATED BY: ARAMIS ALEXANDER DATE: 12/14/16 REPORT STATUS : Draft TRANSCRIBED BY: [employer] DATE: 12/14/16 [facility] Patient Name: Freda Rondon Date of : 1965 Attending MD: ARAMIS ALEXANDER MD Procedure Date No Time: 12/14/2016 Procedure: Upper GI endoscopy Indications: Acute post hemorrhagic anemia, Hematemesis Medicines: Monitored Anesthesia Care Complications: No immediate complications. Procedure: Pre-Anesthesia Assessment: - ASA Grade Assessment: III - A patient with severe systemic disease. After obtaining informed consent, the endoscope was passed under direct vision. Throughout the procedure, the patient's blood pressure, pulse, and oxygen saturations were monitored continuously. The GIF [id number] was introduced through the mouth, and advanced to the third part of duodenum. The upper GI endoscopy was technically difficult and complex. The patient tolerated the procedure fairly well. Findings: The nasopharynx was normal. LA Grade C (one or more mucosal breaks continuous between tops of 2 or more mucosal folds, less than 75% circumference) esophagitis with no bleeding was found in the entire esophagus. A large non-bleeding Lamar-Pak tear with stigmata of recent bleeding was found. Area was successfully injected with 3 mL of a 1:10,000 solution of epinephrine for hemostasis. Estimated blood loss was minimal. To prevent bleeding post-intervention, three hemostatic clips were successfully placed. There was no bleeding at the end of the procedure. A medium-sized hiatus hernia was present. Diffuse mild inflammation characterized by congestion (edema) and erosions was found in the entire examined stomach. The examined duodenum was normal. Impression: - Normal nasopharynx. - LA Grade C reflux esophagitis. - Lamar-Pak tear. - Hiatus hernia. - Gastritis. - Normal examined duodenum. EGD REPORT [address] [address] NAME: FREDA RONDON : 69 STATUS : ADM IN [facility]#: [id number] AGE: 51 ADM/REG DATE : 12/14/16 MR#: [id number] REPORT SERV DATE: 12/14/16 DICTATED BY: ARAMIS ALEXANDER DATE: 12/14/16 REPORT STATUS : Draft TRANSCRIBED BY: [employer] DATE: 12/14/16 Recommendation: - Return patient to ICU for ongoing care. - Use Protonix (pantoprazole) 80 mg IV daily. - Follow an antireflux regimen. - Discontinue aspirin and NSAIDs indefinitely. - Discontinue alcohol consumption indefinitely. - CT of the chest without contrast to r/o perforation. Procedure Code(s): --- Professional --- 73027, Esophagogastroduodenoscopy, flexible, transoral; with control of bleeding, any method Diagnosis Code(s): --- Professional --- K21.0, Gastro-esophageal reflux disease with esophagitis K22.6, Gastro-esophageal laceration-hemorrhage syndrome K44.9, Diaphragmatic hernia without obstruction or gangrene K29.70, Gastritis, unspecified, without bleeding D62, Acute posthemorrhagic anemia K92.0, Hematemesis CPT copyright 2013 [employer]. All rights reserved. The codes documented in this report are preliminary and upon rubber molder review may be revised to meet current compliance requirements. ARAMIS ALEXANDER MD 12/14/2016 5:55 PM This report has been signed electronically. Number of Addenda: 0 Note Initiated On: 12/14/2016 4:46 PM Scope Withdrawal Time 0 hours 0 minutes 0 seconds [address] [address]
--- NOTE | ~2016-12-14 | CN ---
Consultation Report [facility] [address] [place]. [address] NAME: AZALIA RONDON : 69 STATUS : ADM IN [facility]#: [id number] AGE: 51 ADM/REG DATE : 12/14/16 MR#: [id number] REPORT SERV DATE: 12/14/16 DICTATED BY: RAYSHAWN YOU DATE: 12/14/16 REPORT STATUS : Draft TRANSCRIBED BY: MODL DATE: 12/14/16 CONSULTATION DATE OF CONSULTATION: 12/14/2016 REASON FOR CONSULTATION: The patient came with history of vomiting, significant amount of dark bloody vomitus at home and that is the reason she came to emergency room. I was consulted for the same. HISTORY OF PRESENT ILLNESS: Ms. Rondon is 51-year-old, female, known to me, had undergone upper endoscopy by me on November 26 this year for a history of upper GI bleed and also history of alcohol abuse and Goody powder BC Powder abuse at the same time and at that time noted to have a gastric ulcer. At this time, the patient woke up, was nauseous, and throw up and at that time noted to have about half a gallon to a gallon of dark red blood. History was obtained from patient and from the chart. Since then, the patient had no vomiting until on the floor has had one more episode of vomiting. Very minimal abdominal pain if at all, not complaining any pain when I examine or talk to her. She denies taking alcohol or Goody powder but father did give history to admitting physician that she is continuing to do that. The ER physician called me and when we noted that her BUN was 30, creatinine 0.71, I was worried about significant upper GI bleeding and also volume depletion so we decided to keep her in the hospital and undergo upper endoscopy as soon as possible. Denied any hematochezia or melena. PAST MEDICAL HISTORY: Significant for as mentioned upper GI bleeding, also hepatitis, depression, hypertension, seizure disorder, history of alcohol abuse, and NSAID abuse. FAMILY HISTORY: Noncontributory. SOCIAL HISTORY: Thirty pack year history of smoking. Alcohol, Goody Powder abuse. Drinks almost on a daily basis as per her father. She is trying to get disability for herself. MEDICATIONS: Discharge medications on 11/28/2016 was Lyrica 75 mg at bedtime; Zoloft 100 mg daily; Carafate 1 tablet slurry before every meal and at bedtime; triamcinolone cream for chronic eczema; Percocet 10/325 as needed; Xanax 0.5 mg twice a day; Norvasc 10 mg daily; Ambien 5 mg at bedtime; Rolaids as needed; Pepto-Bismol as needed; and [id number] Slow Fe iron supplement daily. REVIEW OF SYSTEMS: Noted from the chart. Denies any headache. No chest pain. No difficulty breathing. No acute change in vision or hearing. Very minimal epigastric discomfort. All other system reviewed as per history. PHYSICAL EXAMINATION: VITAL SIGNS: Temperature 96.8, pulse 75, respirations 18 per minute. Blood pressure 139/70. Consultation Report [address] [place]. [address] NAME: AZALIA RONDON : 69 STATUS : ADM IN [facility]#: [id number] AGE: 51 ADM/REG DATE : 12/14/16 MR#: [id number] REPORT SERV DATE: 12/14/16 DICTATED BY: RAYSHAWN YOU DATE: 12/14/16 REPORT STATUS : Draft TRANSCRIBED BY: MESHA DATE: 12/14/16 GENERAL: This is a female, known to me, in no acute distress. Some abdominal discomfort. HEENT: No icterus. Somewhat pale conjunctivae. NECK: Supple. No JVD. CHEST: Bilateral fair air flow. Normal excursions. HEART: S1-S2, regular rate and rhythm. No murmur. ABDOMEN: Soft. Bowel sounds present. Minimal epigastric tenderness noted, otherwise benign. EXTREMITIES: No clubbing, cyanosis, or edema. NEUROLOGICAL EXAM: Alert and oriented, moving all extremities. PSYCH: Somewhat anxious but otherwise normal affect. LAB: Sodium 138, potassium 3.6, BUN decreased from 30 to 19, creatinine decreased from 0.71 to 0.45. Calcium 7.9, albumin 2.6. Liver enzymes normal. test was negative today. White count 12,300, hemoglobin 8.6 decreased to 7.6 requiring some blood transfusion, MCV 92.5, hematocrit 23.2, RDW 20.5, platelets 280,000. PTT 33.5 seconds, protime 14.5 seconds with INR 1.1. ASSESSMENT: Acute upper gastrointestinal bleed. Rule out ulcer disease or Lamar-Pak tear because of retching and throwing up. Resuscitation, IV PPI, and once again advised to stop alcohol and NSAIDs use. We will advise further after the procedure. CARLOS/MESHA Rayshawn You M.D. / [id number] CC: Branden Escobedo M.D.
[2016-12-14 04:50] LABS: BASOPHILS 0.2 %; BASOPHILS ABSOLUTE 0.02 10/3/uL (0.0-0.16); EOSINOPHILS 0.6 %; EOSINOPHILS ABSOLUTE 0.07 10/3/uL (0.0-0.53); HEMOGLOBIN 8.6 g/dL (12.0-16.0); IMMATURE GRANULOCYTES 0.2 %; IMMATURE GRANULOCYTES ABSOLUTE 0.03 10/3/uL (0.0-0.11); LYMPHOCYTES 8.9 %; LYMPHOCYTES ABSOLUTE 1.09 10/3/uL (0.67-4.30); MEAN CORPUS HGB CONC 31.9 g/dL (32.0-36.0); MEAN CORPUSCULAR HEMOGLOB 29.5 pg (26.0-34.0); MEAN PLATELET VOLUME 10.3 fL (9.2-13.0); MONOCYTES 5.9 %; MONOCYTES ABSOLUTE 0.73 10/3/uL (0.21-1.20); NEUTROPHILS 84.2 %; NEUTROPHILS ABSOLUTE 10.34 10/3/uL (2.02-8.40); PLATELET COUNT 280 10/3/uL (150-400); RBC DISTRIBUTION WIDTH 20.5 % (12.0-16.0); RED CELL COUNT 2.92 10/6/uL (4.0-5.6)
[2016-12-14 04:52] LABS: ER CBC TAT 0 Hrs 11 Mins; INTERNATIONAL NORMAL RATI 1.1 UNITS (-); MANUAL DIFF NO %; MEAN CORPUSCULAR VOLUME 92.5 fL (80-100); PARTIAL THROMBO TIME 33.5 SEC (22.5-37.2); PROTIME (NOT ORD) 14.5 SEC (12.0-14.5); WHITE BLOOD CELLS 12.3 10/3/uL (4.5-10.5)
[2016-12-14 05:00] LABS: A/G RATIO 0.9 (0.7-1.9); ALBUMIN 2.6 G/DL (3.5-5.0); CALCIUM, SERUM 8.3 MG/DL (8.5-10.4); CHLORIDE, SERUM 102 MMOL/L (96-112); CO2 (CARBON DIOXIDE) 28 MMOL/L (24-34); CREATININE 0.71 MG/DL (0.55-1.02); GFR AFRICAN AMERICAN 116 ML/MIN (>=60); GFR NON AFRICAN AMERICAN 100 ML/MIN (>=60); GLOBULIN 2.9 G/DL (2.5-4.1); SGOT(AST) 18 U/L (5-40); SGPT(ALT) 17 U/L (5-65); SODIUM, SERUM 139 MMOL/L (135-148); TOTAL PROTEIN 5.5 G/DL (6.0-8.5)
[2016-12-14 05:02] LABS: ALKALINE PHOSPHATASE 68 U/L (45-117); BUN (BLOOD UREA NITROGEN) 30 MG/DL (6-23); GLUCOSE, SERUM 166 MG/DL (60-99); POTASSIUM, SERUM 3.1 MMOL/L (3.5-5.3)
[~2016-12-14 05:33] MED LIST changes: +PEPTO BISMOL LIQ1 ML PO; +PERCOCET 10/3251 TAB PO; +ROLAIDS PO; +SLOW IRON PO; +SUCR PO; +TRIAMCINOLONE C80 GM TOP; +X5 PO; +ZOL100 PO
[2016-12-14] MEDS ORDERED: X5 PO (05:41)
[2016-12-14] MEDS ORDERED: AMB5 PO (05:42)
[2016-12-14] MEDS ORDERED: SUCR PO (05:44)
[2016-12-14] MEDS ORDERED: ZOL50 PO (05:44)
[2016-12-14] MEDS ORDERED: LYRICA50 PO (05:45)
[2016-12-14] MEDS ORDERED: NORV10 PO (05:46)
[2016-12-14] MEDS ORDERED: PERCOCET 10/3251 TAB PO (05:47)
[2016-12-14 11:46] LABS: HEMATOCRIT 23.2 % (36.0-48.0); HEMOGLOBIN 7.6 g/dL (12.0-16.0)
[2016-12-14 15:08] LABS: BUN (BLOOD UREA NITROGEN) 19 MG/DL (6-23); CALCIUM, SERUM 7.9 MG/DL (8.5-10.4); CHLORIDE, SERUM 105 MMOL/L (96-112); CO2 (CARBON DIOXIDE) 27 MMOL/L (24-34); CREATININE 0.45 MG/DL (0.55-1.02); GFR AFRICAN AMERICAN 136 ML/MIN (>=60); GFR NON AFRICAN AMERICAN 118 ML/MIN (>=60); GLUCOSE, SERUM 83 MG/DL (60-99); POTASSIUM, SERUM 3.6 MMOL/L (3.5-5.3); SODIUM, SERUM 138 MMOL/L (135-148)
[2016-12-14 16:04] LABS: PHOSPHORUS, SERUM 3.3 MG/DL (2.5-4.5)
[2016-12-14 18:54] LABS: HEMOGLOBIN 8.8 g/dL (12.0-16.0)
[2016-12-14 18:56] LABS: HEMATOCRIT 26.6 % (36.0-48.0)
[2016-12-15 05:36] LABS: BASOPHILS 0.2 %; BASOPHILS ABSOLUTE 0.01 10/3/uL (0.0-0.16); EOSINOPHILS ABSOLUTE 0.14 10/3/uL (0.0-0.53); HEMOGLOBIN 7.6 g/dL (12.0-16.0); IMMATURE GRANULOCYTES 0.6 %; IMMATURE GRANULOCYTES ABSOLUTE 0.03 10/3/uL (0.0-0.11); LYMPHOCYTES 34.8 %; LYMPHOCYTES ABSOLUTE 1.62 10/3/uL (0.67-4.30); MEAN CORPUS HGB CONC 31.9 g/dL (32.0-36.0); MEAN CORPUSCULAR HEMOGLOB 29.7 pg (26.0-34.0); MEAN PLATELET VOLUME 10.4 fL (9.2-13.0); MONOCYTES 7.5 %; MONOCYTES ABSOLUTE 0.35 10/3/uL (0.21-1.20); NEUTROPHILS 53.9 %; RED CELL COUNT 2.56 10/6/uL (4.0-5.6)
[2016-12-15 05:37] LABS: HEMATOCRIT 23.8 % (36.0-48.0); MANUAL DIFF NO %; PLATELET COUNT 145 10/3/uL (150-400); WHITE BLOOD CELLS 4.7 10/3/uL (4.5-10.5)
[2016-12-15 05:54] LABS: CALCIUM, SERUM 7.4 MG/DL (8.5-10.4); CHLORIDE, SERUM 112 MMOL/L (96-112); CREATININE 0.41 MG/DL (0.55-1.02); GFR AFRICAN AMERICAN 141 ML/MIN (>=60); GFR NON AFRICAN AMERICAN 121 ML/MIN (>=60); GLUCOSE, SERUM 79 MG/DL (60-99); PHOSPHORUS, SERUM 2.7 MG/DL (2.5-4.5); SODIUM, SERUM 140 MMOL/L (135-148)
[2016-12-15 05:59] LABS: BUN (BLOOD UREA NITROGEN) 10 MG/DL (6-23); CO2 (CARBON DIOXIDE) 17 MMOL/L (24-34); POTASSIUM, SERUM 3.6 MMOL/L (3.5-5.3)
[2016-12-15 13:48] LABS: HEMOGLOBIN 8.1 g/dL (12.0-16.0)
[2016-12-15 17:15] LABS: HEMATOCRIT 22.7 % (36.0-48.0); HEMOGLOBIN 7.6 g/dL (12.0-16.0)
[2016-12-16 00:41] LABS: HEMATOCRIT 22.5 % (36.0-48.0); HEMOGLOBIN 7.3 g/dL (12.0-16.0)
[2016-12-16 03:42] LABS: HEMATOCRIT 23.1 % (36.0-48.0); HEMOGLOBIN 7.7 g/dL (12.0-16.0)
[2016-12-16 03:59] LABS: CALCIUM, SERUM 7.7 MG/DL (8.5-10.4); CHLORIDE, SERUM 109 MMOL/L (96-112); CREATININE 0.37 MG/DL (0.55-1.02); GFR AFRICAN AMERICAN 145 ML/MIN (>=60); GFR NON AFRICAN AMERICAN 125 ML/MIN (>=60); GLUCOSE, SERUM 88 MG/DL (60-99); POTASSIUM, SERUM 3.3 MMOL/L (3.5-5.3); SODIUM, SERUM 141 MMOL/L (135-148)
[2016-12-16 04:09] LABS: BUN (BLOOD UREA NITROGEN) 6 MG/DL (6-23); CO2 (CARBON DIOXIDE) 23 MMOL/L (24-34)
[2016-12-17 05:26] LABS: BASOPHILS 0.2 %; BASOPHILS ABSOLUTE 0.01 10/3/uL (0.0-0.16); EOSINOPHILS 3.5 %; EOSINOPHILS ABSOLUTE 0.19 10/3/uL (0.0-0.53); IMMATURE GRANULOCYTES 0.2 %; IMMATURE GRANULOCYTES ABSOLUTE 0.01 10/3/uL (0.0-0.11); LYMPHOCYTES 20.5 %; LYMPHOCYTES ABSOLUTE 1.12 10/3/uL (0.67-4.30); MEAN CORPUS HGB CONC 33.3 g/dL (32.0-36.0); MEAN CORPUSCULAR HEMOGLOB 30.5 pg (26.0-34.0); MEAN CORPUSCULAR VOLUME 91.6 fL (80-100); MEAN PLATELET VOLUME 9.2 fL (9.2-13.0); MONOCYTES 5.3 %; MONOCYTES ABSOLUTE 0.29 10/3/uL (0.21-1.20); NEUTROPHILS 70.3 %; NEUTROPHILS ABSOLUTE 3.84 10/3/uL (2.02-8.40); RBC DISTRIBUTION WIDTH 18.6 % (12.0-16.0); RED CELL COUNT 2.62 10/6/uL (4.0-5.6); WHITE BLOOD CELLS 5.5 10/3/uL (4.5-10.5)
[2016-12-17 05:32] LABS: MANUAL DIFF NO %; PLATELET COUNT 198 10/3/uL (150-400)
[2016-12-17 05:40] LABS: BUN (BLOOD UREA NITROGEN) 4 MG/DL (6-23); CALCIUM, SERUM 7.7 MG/DL (8.5-10.4); CHLORIDE, SERUM 107 MMOL/L (96-112); CO2 (CARBON DIOXIDE) 24 MMOL/L (24-34); CREATININE 0.47 MG/DL (0.55-1.02); GFR AFRICAN AMERICAN 134 ML/MIN (>=60); GFR NON AFRICAN AMERICAN 116 ML/MIN (>=60); GLUCOSE, SERUM 103 MG/DL (60-99); PHOSPHORUS, SERUM 3.2 MG/DL (2.5-4.5); POTASSIUM, SERUM 3.3 MMOL/L (3.5-5.3); SODIUM, SERUM 137 MMOL/L (135-148)
[2016-12-18 06:11] LABS: HEMATOCRIT 26.1 % (36.0-48.0); HEMOGLOBIN 8.6 g/dL (12.0-16.0)
[2016-12-18] MEDS ORDERED: BACTRONASA NAS (12:05)
[2016-12-18] MEDS ORDERED: PROTONIX PO (12:05)
[2016-12-18] MEDS ORDERED: SUCR PO (12:06)
== END 2016-12-18 15:36 | disposition home or self-care (01) | DRG 369 ==
LOC: ER 05:33 → ER/OF 10:31 → 1SO 11:52 → SDC/OF 18:12 → MIC 19:26 → 7NO 12-16 17:52
PROVIDERS: Internal Medicine; Internal Medicine Critical Care Medicine; Internal Medicine Gastroenterology; Internal Medicine Pulmonary Disease; Specialist
PROC: 0W3P8ZZ Control Bleeding in Gastrointestinal Tract, Via Natural or Artificial Opening Endoscopic (ICD-10-PCS; principal; 2016-12-14 17:16)
DX: K22.6 Gastro-esophageal laceration-hemorrhage syndrome (principal); D62 Acute posthemorrhagic anemia; D69.6 Thrombocytopenia, unspecified; E83.42 Hypomagnesemia; E86.9 Volume depletion, unspecified; I10 Essential (primary) hypertension; F10.10 Alcohol abuse, uncomplicated; F32.9 Major depressive disorder, single episode, unspecified; K21.0 Gastro-esophageal reflux disease with esophagitis; E87.6 Hypokalemia; G40.909 Epilepsy, unspecified, not intractable, without status epilepticus; K44.9 Diaphragmatic hernia without obstruction or gangrene; K29.70 Gastritis, unspecified, without bleeding; F17.210 Nicotine dependence, cigarettes, uncomplicated; Z79.1 Long term (current) use of non-steroidal anti-inflammatories (NSAID); Z85.028 Personal history of other malignant neoplasm of stomach
CPT/HCPCS: 36415; 71250; 80048; 80053; 83735; 84100; 84132; 84703; 85014; 85018; 85025; 85610; 85730; 86850; 86900; 86901; 86920; 87641; 93005; 96374; 96375; 99285; A9270-GY; C9113; J0330; J2405; P9016